=== PATIENT | female | born 1985 | race Caucasian/White ===

== ENCOUNTER 2016-06-23 17:14 | Emergency (ER) | payer OTHER ==
[~2016-06-23] VITALS: Ht 170.2 cm; Wt 60.9 kg
[~2016-06-23 17:14] MED LIST: AMOX250C PO; AMOX500C PO; HYDR-79 PO; HYDR-971 PO
--- NOTE | 2016-06-23 17:50 | ED.ADGEN ---
Past History Past Medical History: Asthma, Bronchitis, Diabetes, Other Past Surgical History: Smoking: Cigarettes Alcohol Use: Rarely Drug Use: None Adult General Chief Complaint Chief Complaint "I have asthma but I still smoke about a pack and half a day... But I am thinking about quitting... I develop earache and sore throat and coughing a lot.... I been sick the last 4-5 days".... HPI HPI Patient is a 31 year old female who presents with above hx and complaints of of upper respiratory infection, cough, pharyngitis, otitis, and fever. Patient does not get flu shots and not had Pneumovax. No recent travel. No specific ill contacts. Cough has been nonproductive. Ear pain started after attempting to clean ears . The patient normally follows with out pt. clinics for her asthma exacerbations. Pt. does not know her best peak flow. Review of Systems Review of Systems Constitutional: Subjective history of fever or chills [] Eyes: Denies change in visual acuity, redness, or eye pain [] HENT: History of nasal congestion, ear pain and sore throat [] Respiratory: Complains of a nonproductive cough and wheezing Cardiovascular: No additional information not addressed in HPI [] GI: Denies abdominal pain, nausea, vomiting, bloody stools or diarrhea [] : Denies dysuria or hematuria [] Musculoskeletal: Denies back pain or joint pain [] Integument: Denies rash or skin lesions [] Neurologic: Denies headache, focal weakness or sensory changes [] Endocrine: Denies polyuria or polydipsia [] Family History Family History Noncontributory Current Medications Current Medications Current Medications Medications (Trade) Dose Ordered Sig/Hossein Start Time Stop Time Status Last Admin Dose Admin Albuterol Sulfate (Ventolin Hfa) 2 puff 1X ONCE 06/23/16 18:15 06/23/16 18:16 DC 06/23/16 18:08 2 PUFF Azithromycin (Zithromax) 500 mg 1X ONCE 06/23/16 18:15 06/23/16 18:16 DC 06/23/16 18:15 500 MG Neomycin/ Polymyxin/ Hydrocortisone (Cortisporin Otic) 2 drop 1X ONCE 06/23/16 18:30 06/23/16 18:31 DC 06/23/16 18:30 2 DROP Prednisone (Prednisone) 60 mg 1X ONCE 06/23/16 18:15 06/23/16 18:16 DC 06/23/16 18:15 60 MG Allergies Allergies Allergies Coded Allergies Type Severity Reaction Last Updated Verified No Known Drug Allergies 02/18/16 No Physical Exam Physical Exam Constitutional: Mild distress, non-toxic appearance. [] HENT: Normocephalic, atraumatic, bilateral external ears normal, oropharynx moist, postnasal drainage with erythema, no oral exudates, nose clear rhinorrhea. Excoriation of the ear canals Eyes: PERRLA, EOMI, conjunctiva normal, no discharge. [] Neck: Normal range of motion, no tenderness, supple, no stridor. [] Cardiovascular:Heart rate regular rhythm, no murmur [] Lungs & Thorax: Bilateral breath sounds equal apexes with scattered wheezing on auscultation . Nonproductive cough. Abdomen: Bowel sounds normal, soft, no tenderness, no masses, no pulsatile masses. [] Old surgical scar. Skin: Warm, dry, no erythema, no rash. [] Tattoos. Back: No tenderness, no CVA tenderness. [] Extremities: No tenderness, no cyanosis, no clubbing, ROM intact, no edema. No cording. Neurologic: Alert and oriented X 3, normal motor function, normal sensory function, no focal deficits noted. [] Psychologic: Affect anxious, judgement normal, mood normal. [] Current Patient Data Vital Signs Vital Signs Date Time Temp Pulse Resp B/P Pulse Ox O2 Delivery O2 Flow Rate FiO2 06/23/16 18:25 98.9 81 20 160/98 99 Room Air EKG EKG [] Radiology/Procedures Radiology/Procedures [] Course & Med Decision Making Course & Med Decision Making Pertinent Labs and Imaging studies reviewed. (See chart for details). Stop smoking. Take his Zithromax 250 a day for 5 days. Take prednisone 50 mg a day for 5 days. Use Benadryl 25-50 mg 4 times a day for drainage and cough. Consider getting flu vaccination. Consider getting Pneumovax. Use Cortisporin ear drops to both ears 4 times a day. Follow-up primary care. Return if any concerns. Take [id number] Tylenol and ibuprofen for pain or fever [] Final Impression Final Impression 1. Bronchitis 2. Asthma 3. Tobacco Abuse[] 4. External otitis and excoriations 5. Upper respiratory infection Problems: Dragon Disclaimer Dragon Disclaimer This electronic medical record was generated, in whole or in part, using a voice recognition dictation system. SERGEY LUCERO MD Jun 23, 2016 17:50
[2016-06-23] MEDS ORDERED: PRED50TA PO (18:01)
[2016-06-23] MEDS ORDERED: AZIT250T PO (18:01)
[2016-06-23] MEDS ORDERED: AZITHROMYCIN 250 MG TABLET. PO ONE (18:15)
[2016-06-23] MEDS ORDERED: PREDNISONE 20 MG TABLET PO ONE (18:15)
[2016-06-23] MEDS ORDERED: ALBUTEROL SULFATE 8GM INHALER. INH ONE (18:15)
[2016-06-23 18:25] VITALS: BP 160/98
[2016-06-23] MEDS ORDERED: NEOMYCIN/POLYMYXIN/HC OTIC SUSPENSION 10ML BOTTLE. AU ONE (18:30)
== END 2016-06-23 18:30 | disposition home or self-care (01) ==
LOC: ER 17:14
DX: J06.9 Acute upper respiratory infection, unspecified (principal); J45.909 Unspecified asthma, uncomplicated; H66.93 Otitis media, unspecified, bilateral; E11.9 Type 2 diabetes mellitus without complications; F17.210 Nicotine dependence, cigarettes, uncomplicated; S00.412A Abrasion of left ear, initial encounter; S00.411A Abrasion of right ear, initial encounter; X58.XXXA Exposure to other specified factors, initial encounter; Y93.89 Activity, other specified; Y99.8 Other external cause status; Y92.89 Other specified places as the place of occurrence of the external cause
CPT/HCPCS: 94640; 99284; J0456; J7512; J7613; 94664

== ENCOUNTER 2016-07-11 16:26 | Emergency (ER) | payer OTHER ==
[2016-07-11 16:26] VITALS: BP 151/102
[~2016-07-11 16:26] MED LIST changes: +AZIT250T PO; +PRED50TA PO
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
== END 2016-07-11 17:06 | disposition left against medical advice (07) ==
LOC: ER 16:26
DX: K04.7 Periapical abscess without sinus (principal); R06.00 Dyspnea, unspecified; J45.909 Unspecified asthma, uncomplicated; F17.210 Nicotine dependence, cigarettes, uncomplicated
CPT/HCPCS: 99281

== ENCOUNTER 2016-08-30 14:22 | Emergency (ER) | payer OTHER ==
[~2016-08-30] VITALS: Ht 170.2 cm; Wt 60.9 kg
[~2016-08-30 14:22] MED LIST changes: +AMOX-260 PO; -AMOX250C PO
[2016-08-30] MEDS ORDERED: HYDR-971 PO (15:04)
--- NOTE | 2016-08-30 15:04 | PHYS DOC ---
Past History Past Medical History: No Pertinent History Past Surgical History: , Other Smoking: Cigarettes Alcohol Use: None Drug Use: None Adult General Chief Complaint Chief Complaint: DENTAL PROBLEM HPI HPI Patient is a 31-year-old female who presents ambulatory to the emergency department complaining of mouth pain. Patient states that 2 days ago she had 4 molars pulled by the dentist. She is continuing to have a lot of pain. She saw her doctor yesterday who put her on amoxicillin and Tylenol with Codeine. She is taking those as directed but still having a lot of pain. Also is taking ibuprofen 800 mg every 6-8 hours. Patient denies fever. She states that her face is swollen. Review of Systems Review of Systems Constitutional: Denies fever or chills [] GI: Denies vomiting Allergies Allergies Allergies Coded Allergies Type Severity Reaction Last Updated Verified tramadol Allergy Unknown 07/11/16 Yes Physical Exam Physical Exam Constitutional: Well developed, well nourished, no acute distress, non-toxic appearance. [] HENT: Normocephalic, atraumatic, bilateral external ears normal, does appear mildly swollen, no redness, no ecchymosis. Patient is able to open her mouth for exam. She does appear to have recent extractions of mandibular molars bilaterally. There is some redness and swelling diffusely of gum inflammation but no purulent drainage and no localized worsened swelling. No swelling of the tongue or under the tongue. She is handling her secretions well with no difficulty swallowing. Eyes:conjunctiva normal, no discharge. [] Neck: Normal range of motion, no tenderness, supple, no stridor. [] Skin: Warm, dry, no erythema, no rash. [] Extremities: No tenderness, no cyanosis, no clubbing, ROM intact, no edema. [] Neurologic: Alert and oriented X 3, normal motor function, normal sensory function, no focal deficits noted. [] Current Patient Data Vital Signs Vital Signs Date Time Temp Pulse Resp B/P (MAP) Pulse Ox O2 Delivery O2 Flow Rate FiO2 08/30/16 14:38 97.8 110 20 96 Room Air EKG EKG [] Radiology/Procedures Radiology/Procedures [] Course & Med Decision Making Course & Med Decision Making Pertinent Labs and Imaging studies reviewed. (See chart for details) 31-year-old female had for mandibular molars extracted and is having postoperative pain. I don't believe she has anything else contributing to the pain, no evidence of localized infection or "dry socket", she is just continuing to have some post extraction pain. I prescribed hydrocodone and she is to continue her amoxicillin. [] Karina Disclaimer Karina Disclaimer This chart was dictated in whole or in part using Voice Recognition software in a busy, high-work load, and often noisy Emergency Department environment. It may contain unintended and wholly unrecognized errors or omissions. Departure Departure: Impression: Primary Impression: S/P tooth extraction Additional Impression: Pain, dental Disposition: HOME, SELF-CARE Condition: STABLE Referrals: LALA CARIAS DO (PCP) Additional Instructions: Continue to take amoxicillin as prescribed. Continue to take ibuprofen 800 mg every 6-8 hours for pain. Apply ice 15-20 minutes out of every 1-2 hours to the area to decrease swelling. Stop taking Tylenol with Codeine, we will switch you to hydrocodone, which is a stronger pain reliever. Hydrocodone is an opiate. Do not take while driving. It can cause constipation and sedation. It will be addictive if you take it for very long. Only take it for 1-2 days as your pain should start improving quickly. Scripts Hydrocodone Bit/Acetaminophen (NORCO 5-325 TABLET) 1 Each Tablet 1-2 TAB PO Q4-6HRS for pain after dental work, #12 TAB Prov: JENA PEREZ MD 08/30/16 Problem Qualifiers JENA PEREZ MD August 30, 2016 15:04
[2016-08-30 15:11] VITALS: BP 142/88
== END 2016-08-30 15:09 | disposition home or self-care (01) ==
LOC: ER 14:22
DX: G89.18 Other acute postprocedural pain (principal); K08.89 Other specified disorders of teeth and supporting structures; F17.210 Nicotine dependence, cigarettes, uncomplicated; Z88.8 Allergy status to other drugs, medicaments and biological substances; Z98.890 Other specified postprocedural states
CPT/HCPCS: 99283

== ENCOUNTER 2016-12-22 17:57 | Emergency (ER) | payer OTHER ==
[~2016-12-22] VITALS: Ht 170.2 cm; Wt 62.1 kg
[2016-12-22 18:10] VITALS: BP 184/124
--- NOTE | 2016-12-22 18:31 | ED.ADGEN ---
Past History Past Medical History: No Pertinent History Past Surgical History: No Surgical History Smoking: Cigarettes Alcohol Use: Occasionally Drug Use: None Adult General Chief Complaint Chief Complaint Right index finger pain after falling up stairs while carrying objects [facility] Patient is a [31] year old [female] who presents with pain in PIP after falling up stairs while carrying things in her hands Review of Systems Review of Systems Constitutional: Denies fever or chills [] Eyes: Denies change in visual acuity, redness, or eye pain [] HENT: Denies nasal congestion or sore throat [] Respiratory: Denies cough or shortness of breath [] Cardiovascular: No additional information not addressed in HPI [] GI: Denies abdominal pain, nausea, vomiting, bloody stools or diarrhea [] : Denies dysuria or hematuria [] Musculoskeletal: pain over PIP of 2nd digit on right hand Integument: Denies rash or skin lesions [] Neurologic: Denies headache, focal weakness or sensory changes [] Endocrine: Denies polyuria or polydipsia [] Allergies Allergies Allergies Coded Allergies Type Severity Reaction Last Updated Verified tramadol Allergy Unknown 07/11/16 Yes Physical Exam Physical Exam Constitutional: Well developed, well nourished, no acute distress, non-toxic appearance. [] HENT: Normocephalic, atraumatic, bilateral external ears normal, oropharynx moist, no oral exudates, nose normal. [] Eyes: PERRLA, EOMI, conjunctiva normal, no discharge. [] Neck: Normal range of motion, no tenderness, supple, no stridor. [] Cardiovascular:Heart rate regular rhythm, no murmur [] Lungs & Thorax: Bilateral breath sounds clear to auscultation [] Skin: Warm, dry, no erythema, no rash. [] Extremities tender over PIP. minimal swelling, no ecchymosis. full flexion and extension actively with no pain Psychologic: Affect normal, judgement normal, mood normal. [] Current Patient Data Vital Signs Vital Signs Date Time Temp Pulse Resp B/P (MAP) Pulse Ox O2 Delivery O2 Flow Rate FiO2 12/22/16 18:10 97.7 114 20 100 Room Air EKG EKG [] Radiology/Procedures Radiology/Procedures [] Course & Med Decision Making Course & Med Decision Making pt with minimal swelling. full ROM without pain. she is requesting narcotic pain meds for minimal findings. I encouraged her to use tylenol and ibuprofen and ice. I discouraged splinting at this point. no tendon function deficit noted. Final Impression Final Impression finger injury[] Problems: Dragon Disclaimer Dragon Disclaimer This electronic medical record was generated, in whole or in part, using a voice recognition dictation system. Departure Time of Disposition: 18:29 Disposition: 01 HOME, SELF-CARE Diagnosis: finger injury Condition: GOOD Patient Instructions: Hand Contusion Additional Instructions: ice finger for 2-3 days. tylenol and ibuprofen for pain. rest your finger. see your doctor in 2 weeks if still having pain. return if any concerns LUCY MONSALVE MD Dec 22, 2016 18:31
== END 2016-12-22 18:33 | disposition home or self-care (01) ==
LOC: ER 17:57
DX: S69.91XA Unspecified injury of right wrist, hand and finger(s), initial encounter (principal); F17.210 Nicotine dependence, cigarettes, uncomplicated; Z88.6 Allergy status to analgesic agent; W10.9XXA Fall (on) (from) unspecified stairs and steps, initial encounter; Y93.89 Activity, other specified; Y99.8 Other external cause status; Y92.89 Other specified places as the place of occurrence of the external cause
CPT/HCPCS: 99281

== ENCOUNTER 2017-01-07 18:21 | Emergency (ER) | payer OTHER ==
[2017-01-07 18:21] VITALS: BP 121/76
[2017-01-07] MEDS ORDERED: SULF1TAB24 PO (18:38)
[2017-01-07] MEDS ORDERED: IBUP800T19 PO (18:38)
--- NOTE | 2017-01-07 18:39 | PHYS DOC ---
Past History Past Medical History: No Pertinent History Past Surgical History: No Surgical History Smoking: Cigarettes Alcohol Use: Occasionally Drug Use: None Adult General Chief Complaint Chief Complaint: FACE PAIN HPI HPI Patient is a 31 year old F who presents with abscess to the left denominational. Patient was seen at [facility] this morning for an abscess to left denominational which was I&D and patient was prescribed Keflex and for Lortabs. Patient presents to the emergency room today for increased pain and states the for Lortabs which she took has not controlled her pain. Patient states she is here for pain control. Patient states she's having no vision changes or any worsening symptoms. Patient denies any fevers. Patient denies any chest pain shortness of breath. Patient denies any nausea/vomiting/diarrhea. Patient denies any extension of the abscess. Patient has no other complaints. Review of Systems Review of Systems GEN: Denies fevers, chills, sweats HEENT: Denies blurred vision, sore throat CV: Denies chest pain RESP: Denies shortness of air, cough GI: Denies n/v/d NEURO: Denies confusion, dizziness MSK: Denies weakness, joint pain/swelling SKIN: Abscess left denominational Allergies Allergies Allergies Coded Allergies Type Severity Reaction Last Updated Verified tramadol Allergy Unknown 07/11/16 Yes Physical Exam Physical Exam GEN.: No apparent distress. Alert and oriented. HEENT: Head is normocephalic, atraumatic, abscess to the left denominational that is draining from an incision and drainage done earlier today, 2 cm of induration with no fluctuance noted, extraocular ocular muscles intact bilaterally, pupils equal and reactive bilaterally NECK: Supple. LUNGS: CTAB. HEART: RRR, S1, S2 present. Peripheral pulses intact ABDOMEN: Soft, nontender. Positive bowel sounds. EXTREMITIES: Without any cyanosis. NEUROLOGIC: Normal speech, normal tone, cranial nerves II through XII are grossly intact without any focal neurological deficits PSYCHIATRIC: Normal affect, normal mood. SKIN: No ulcerations EKG EKG [] Radiology/Procedures Radiology/Procedures [] Course & Med Decision Making Course & Med Decision Making Pertinent Labs and Imaging studies reviewed. (See chart for details) ED course: Patient was seen and examined emergency room had a long discussion with the patient in regards to pain management and treatment of abscesses. Patient states she has a history of MRSA therefore recommended adding Bactrim to the Keflex that was started prescribed since Bactrim has better coverage for MRSA. Patient was agreeable to adding the Bactrim. Discussed pain management and since she is already received for Lortabs recommended utilizing Motrin. Discussed using 800 mg Motrin 3 times a day as needed for pain and if she wanted something stronger she can follow up with a family doctor who can closely monitor and prescribe her narcotic pain medication. I explained to her that I do not prescribe narcotic pain medication for simple small abscess. Patient was comfortable with this plan and agreed to taking the Motrin and Bactrim. I did offer the patient the Patient the possibility of obtaining a CT scan to see if there is any extension of the abscess however the patient declined the CT scan at this time. Patient is stable for discharge. MDM: After reviewing the chart, CC/HPI/PMH, physical exam, I do not believe the patient has a severe bacterial infection warranting further workup and/or admission at this time. I do not believe the patient has orbital cellulitis or extensive facial cellulites at this time. I believe the patient has a simple abscess that has already been drained at another ER earlier today and I believe the patient can be treated with oral antibiotics and close follow-up with PCP. Had a long discussion with the patient regards to pain management and have agreed upon using Motrin 800 mg 3 times a day. Additional verbal discharge instructions were provided to the patient and that if symptoms get worse or any new symptoms arise that are worrisome to the patient she is to return to the emergency room immediately [] Dragon Disclaimer Dragon Disclaimer This chart was dictated in whole or in part using Voice Recognition software in a busy, high-work load, and often noisy Emergency Department environment. It may contain unintended and wholly unrecognized errors or omissions. Departure Departure: Impression: Primary Impression: Skin abscess Disposition: HOME, SELF-CARE Condition: IMPROVED Referrals: PCP,NO (PCP) Patient Instructions: Abscess Additional Instructions: Please follow-up with your family physician in the next one to 2 days and return if symptoms increase Scripts Ibuprofen (IBUPROFEN) 800 Mg Tablet 1 TAB PO TID for 10 Days, #30 TAB 1 Refill Prov: MARION KWOK DO 01/07/17 Sulfamethoxazole/Trimethoprim (BACTRIM DS TABLET) 1 Each Tablet 1 TAB PO BID for 10 Days, #20 TAB Prov: MARION KWOK DO 01/07/17 MARION KWOK DO Jan 07, 2017 18:39
== END 2017-01-07 18:53 | disposition home or self-care (01) ==
LOC: ER 18:21
DX: L02.01 Cutaneous abscess of face (principal); F17.210 Nicotine dependence, cigarettes, uncomplicated; Z88.6 Allergy status to analgesic agent
CPT/HCPCS: 99283

== ENCOUNTER 2017-01-29 19:34 | Emergency (ER) | payer OTHER ==
[~2017-01-29] VITALS: Ht 170.2 cm; Wt 60.9 kg
[~2017-01-29 19:34] MED LIST changes: +IBUP800T19 PO; +SULF1TAB24 PO
--- NOTE | 2017-01-29 19:39 | ED.ADGEN ---
Past History Past Medical History: Asthma, Bipolar, Diabetes, MRSA, Seizure, Other Past Surgical History: Smoking: Cigarettes Alcohol Use: Occasionally Drug Use: None Adult General Chief Complaint Chief Complaint " I decided to quit drinking last night.. I guess I had a seizure... I woke up with paramedics over me..." HPI HPI Patient is a 31 year old female who presents with above hx and complaints of seizure and mental status change. Patient has had previous withdrawal seizures before when she stopped drinking alcohol. Patient denies any drug use. Patient denies any other injuries. Patient has obviously bitten her tongue. Pt is very tremulous. Hyper reflexive. Pt. still a little postictal. No history of primary care. Review of Systems Review of Systems Constitutional: Currently complaining of chills [] Eyes: Denies change in visual acuity, redness, or eye pain [] HENT: Denies nasal congestion or sore throat []complains of sore tongue where she bit it Respiratory: Denies cough or shortness of breath [] Cardiovascular: No additional information not addressed in HPI [] GI: Denies abdominal pain, nausea, vomiting, bloody stools or diarrhea [] : Denies dysuria or hematuria [] Musculoskeletal: Denies back pain or joint pain [] Integument: Denies rash or skin lesions [] Neurologic: Denies headache, focal weakness or sensory changes []history of withdrawal seizure Endocrine: Denies polyuria or polydipsia [] Family History Family History Noncontributory Current Medications Current Medications Current Medications Medications (Trade) Dose Ordered Sig/Hossein Start Time Stop Time Status Last Admin Dose Admin Clonidine HCl (Catapres) 0.1 mg 1X ONCE 01/29/17 20:15 01/29/17 20:16 DC 01/29/17 20:15 0.1 MG Famotidine (Pepcid) 20 mg 1X ONCE 01/29/17 20:15 01/29/17 20:16 DC 01/29/17 20:15 20 MG Lorazepam (Ativan) 2 mg 1X ONCE 01/29/17 23:30 01/29/17 23:31 DC 01/29/17 23:37 2 MG Magnesium Hydroxide (Milk Of Magnesia) 2,400 mg 1X ONCE 01/29/17 23:30 01/29/17 23:31 DC 01/29/17 23:35 2,400 MG Multivitamins/ Minerals 10 ml/ Folic Acid 1 mg/ Thiamine HCl 100 mg/Sodium Chloride 1,011.2 ml @ 1,000 mls/ hr Q1H 01/29/17 20:30 01/29/17 20:59 DC 01/29/17 20:58 1,000 MLS/HR Ondansetron HCl (Zofran) 8 mg 1X ONCE 01/29/17 20:15 01/29/17 20:16 DC 01/29/17 00:19 8 MG Allergies Allergies Allergies Coded Allergies Type Severity Reaction Last Updated Verified tramadol Allergy Unknown 07/11/16 Yes Physical Exam Physical Exam Constitutional: in acute distress, non-toxic appearance. [] HENT: Normocephalic, atraumatic, bilateral external ears normal, oropharynx moist, no oral exudates, nose normal. Bite willson on tongue Eyes: PERRLA, EOMI, conjunctiva normal, no discharge. [] Neck: Normal range of motion, no tenderness, supple, no stridor. [] Cardiovascular: Tachycardia rate regular rhythm, no murmur [] Lungs & Thorax: Bilateral breath sounds equal at apexes with scattered rhonchi and wheezes auscultation [] Abdomen: Bowel sounds normal, soft, no tenderness, no masses, no pulsatile masses. [] Skin: Warm, dry, no erythema, no rash. [] Back: No tenderness, no CVA tenderness. [] Extremities: No tenderness, no cyanosis, no clubbing, ROM intact, no edema. [] Neurologic: Alert and oriented X 3, no gross motor function deficits, gross sensory function intact, no gross focal deficits noted. [] DTR + 2 patella and brachial. Tremor. Psychologic: Affect anxious, judgement normal, mood depressed Current Patient Data Vital Signs Vital Signs Date Time Temp Pulse Resp B/P (MAP) Pulse Ox O2 Delivery O2 Flow Rate FiO2 01/29/17 22:27 83 20 101/61 (74) 95 Room Air 01/29/17 19:37 98.6 Lab Results Laboratory Tests Test 01/29/17 19:46 01/29/17 19:55 01/29/17 20:30 01/29/17 20:45 Urine Opiates Screen Neg (NEG) Urine Methadone Screen Neg (NEG) Urine Barbiturates Neg (NEG) Urine Phencyclidine Screen Neg (NEG) Urine Amphetamine/Methamphetamine Neg (NEG) Urine Benzodiazepines Screen Neg (NEG) Urine Cocaine Screen Neg (NEG) Urine Cannabinoids Screen Neg (NEG) Urine Ethyl Alcohol Neg (NEG) White Blood Count 3.3 x10^3/uL (4.0-11.0) L Red Blood Count 3.35 x10^6/uL (3.50-5.40) L Hemoglobin 12.6 g/dL (12.0-15.5) Hematocrit 37.0 % (36.0-47.0) Mean Corpuscular Volume 110 fL (79-100) H Mean Corpuscular Hemoglobin 38 pg (25-35) H Mean Corpuscular Hemoglobin Concent 34 g/dL (31-37) Red Cell Distribution Width 15.0 % (11.5-14.5) H Platelet Count 50 x10^3/uL (140-400) L Neutrophils (%) (Auto) 73 % (31-73) Lymphocytes (%) (Auto) 18 % (24-48) L Monocytes (%) (Auto) 8 % (0-9) Eosinophils (%) (Auto) 0 % (0-3) Basophils (%) (Auto) 1 % (0-3) Neutrophils # (Auto) 2.4 x10^3uL (1.8-7.7) Lymphocytes # (Auto) 0.6 x10^3/uL (1.0-4.8) L Monocytes # (Auto) 0.3 x10^3/uL (0.0-1.1) Eosinophils # (Auto) 0.0 x10^3/uL (0.0-0.7) Basophils # (Auto) 0.0 x10^3/uL (0.0-0.2) Platelet Estimate Decreased (ADEQUATE) Microcytosis Mod Ovalocytes Occ Schistocytes Occ Prothrombin Time 11.1 SEC (9.4-11.4) Prothrombin Time INR 1.1 (0.9-1.1) PTT 23 SEC (23-33) Sodium Level 136 mmol/L (136-145) Potassium Level 3.6 mmol/L (3.5-5.1) Chloride Level 97 mmol/L (98-107) L Carbon Dioxide Level 18 mmol/L (21-32) L Anion Gap 21 (6-14) H Blood Urea Nitrogen 8 mg/dL (7-20) Creatinine 1.2 mg/dL (0.6-1.0) H Estimated GFR (Cockcroft-Gault) 52.7 Glucose Level 189 mg/dL (70-99) H Calcium Level 8.8 mg/dL (8.5-10.1) Magnesium Level 1.0 mg/dL (1.8-2.4) L Total Bilirubin 1.0 mg/dL (0.2-1.0) Direct Bilirubin 0.4 mg/dL (0.0-0.2) H Aspartate Amino Transferase (AST) 135 U/L (15-37) H Alanine Aminotransferase (ALT) 58 U/L (14-59) Alkaline Phosphatase 109 U/L (46-116) Total Protein 8.0 g/dL (6.4-8.2) Albumin 4.0 g/dL (3.4-5.0) Ethyl Alcohol Level < 10 mg/dL (0-10) Urine Collection Type Unknown Urine Color Grace Urine Clarity Clear Urine pH 6.0 Urine Specific [employer] >=1.030 Urine Protein >100 mg/dl (NEG-TRACE) Urine Glucose (UA) Neg mg/dL (NEG) Urine Ketones (Stick) Neg mg/dL (NEG) Urine Blood Mod (NEG) Urine Nitrite Neg (NEG) Urine Bilirubin Neg (NEG) Urine Urobilinogen Dipstick 1 mg/dL (0.2 mg/dL) Urine Leukocyte Esterase Neg (NEG) Urine RBC Occ /HPF (0-2) Urine WBC Occ /HPF (0-4) Urine Squamous Epithelial Cells Mod /LPF Urine Bacteria 0 /HPF (0-FEW) Urine Mucus Mod /LPF POC Urine HCG, Qualitative hcg negative (Negative) EKG EKG My interpretation EKG shows sinus tachycardia 103 bpm. No acute morphology.[] Radiology/Procedures Radiology/Procedures My interpretation of chest x-ray shows no acute cardiopulmonary findings. My interpretation of CT shows no shift, mass, edema, bleed, or fracture. Does appear to have generalized cerebellar and cerebral atrophy [] Course & Med Decision Making Course & Med Decision Making Pertinent Labs and Imaging studies reviewed. (See chart for details). Begged patient to reconsider her decision to be discharged home. Patient take a multivitamin. Patient take Ativan 1 mg up to 4 times a day. Must follow-up primary care. Return if she elects to be admitted. Push fruit juices. Follow-up all labs and x-rays with primary care. Return if any concerns. [] Final Impression Final Impression 1. Hx ETOH abuse 2. Seizure[] suspect alcohol withdrawal 3. Hypokalemia 4. Diabetes 5. Elevated creatinine 6. Leukopenia 7. Thrombocytopenia 8. Elevated AST 9. Macrocytic and hyperchromic indices Problems: Dragon Disclaimer Dragon Disclaimer This electronic medical record was generated, in whole or in part, using a voice recognition dictation system. SERGEY LUCERO MD Jan 29, 2017 19:39
[2017-01-29 20:14] LABS: BASO % 1 % (0-3); EOS % 0 % (0-3); HEMOGLOBIN 12.6 g/dL (12.0-15.5); LYMPH # 0.6 x10^3/uL (1.0-4.8); LYMPH % 18 % (24-48); MEAN CORPUSCULAR HEMOGLOBIN 38 pg (25-35); MEAN CORPUSCULAR HGB CONC 34 g/dL (31-37); MEAN CORPUSCULAR VOLUME 110 fL (79-100); MONO # 0.3 x10^3/uL (0.0-1.1); MONO % 8 % (0-9); NEUT # 2.4 x10^3uL (1.8-7.7); NEUT % 73 % (31-73); PLATELET COUNT 50 x10^3/uL (140-400); RED BLOOD COUNT 3.35 x10^6/uL (3.50-5.40); WHITE BLOOD COUNT 3.3 x10^3/uL (4.0-11.0)
[2017-01-29] MEDS ORDERED: ONDANSETRON PF 4 MG/2 ML VIAL. IV ONE (20:15)
[2017-01-29] MEDS ORDERED: LORazepam 2 MG/ML VIAL IV ONE (20:15)
[2017-01-29] MEDS ORDERED: cloNIDine HCL 0.1 MG TABLET PO ONE (20:15)
[2017-01-29] MEDS ORDERED: FAMOTIDINE 20 MG TABLET PO ONE (20:15)
[2017-01-29] MEDS ORDERED: MVI, ADULT NO.4 WITH VIT K 10 ML, FOLIC ACID SYRINGE for ER 1 MG, THIAMINE 100 MG in IV... IV SCH ×4 (20:30)
[2017-01-29 20:32] LABS: CALCIUM 8.8 mg/dL (8.5-10.1); CREATININE 1.2 mg/dL (0.6-1.0); DIRECT BILIRUBIN 0.4 mg/dL (0.0-0.2); GFR 52.7; POTASSIUM 3.6 mmol/L (3.5-5.1)
[2017-01-29 20:59] LABS: BARBITURATES NEG (NEG); BENZODIAZEPINES NEG (NEG); CANNABINOIDS NEG (NEG); COCAINE NEG (NEG); METHADONE NEG (NEG); OPIATES NEG (NEG); PHENCYCLIDINE NEG (NEG)
[2017-01-29 21:02] LABS: BACTERIA,URINE 0 /HPF (0-FEW); BILIRUBIN,URINE NEG (NEG); CLARITY,URINE CLEAR; COLOR,URINE AMBER; GLUCOSE,URINE NEG (NEG); NITRITE,URINE NEG (NEG); RBC,URINE OCC /HPF (0-2); SQUAMOUS EPITHELIAL CELL,UR MOD /LPF; UROBILINOGEN,URINE 1 mg/dL (0.2 mg/dL); WBC,URINE OCC /HPF (0-4)
[2017-01-29 21:05] LABS: AMPHETAMINE/METHAMPHETAMINE NEG (NEG)
--- NOTE | 2017-01-29 21:13 | RAD ---
CT head without intravenous contrast History: Seizure today. Comparison: None. Technique: Axial images are obtained of the head from the skull base through the vertex without IV contrast. Exposure: One or more of the following individualized dose reduction techniques were utilized for this examination: 1. Automated exposure control 2. Adjustment of the mA and/or kV according to patient size 3. Use of iterative reconstruction technique Findings: Mild diffuse cerebral cerebellar volume loss is seen, greater than expected for age. Ventricles are otherwise appropriate in size and location. No obvious intracranial mass, mass-effect, midline shift, hemorrhage or obvious acute infarction is identified. Basilar cisterns are patent. Bone windows demonstrate no acute calvarial abnormality. The visualized paranasal sinuses appear clear. Impression: 1. No acute intracranial process. 2. Mild diffuse cerebral and cerebellar volume loss, greater than expected for patient age. Electronically signed by: Lei Murcia MD (01/29/2017 9:10 PM) [facility]
[2017-01-29 22:19] LABS: MICROCYTOSIS MOD; PLT ESTIMATE DECREASED (ADEQUATE)
[2017-01-29 22:20] LABS: OVALOCYTES OCC; SCHISTOCYTES OCC
[2017-01-29 22:27] VITALS: BP 101/61
[2017-01-29] MEDS ORDERED: LORA-434 PO (23:24)
[2017-01-29] MEDS ORDERED: LORazepam 1 MG TABLET PO ONE (23:30)
[2017-01-29] MEDS ORDERED: MAGNESIUM HYDROXIDE 2,400 MG/30 ML ORAL.SUSP. PO ONE (23:30)
--- NOTE | 2017-01-30 03:30 | EKG ---
[address] [address] Test Date: 2017-01-29 Test Time: 20:04:11 Pat Name: JERAMY OLIVEIRA Department: Room: Gender: F Cardiac Tech: FAUSTO : 1985 Requested By: SERGEY LUCERO Order Number: [id number] Reading MD: Vasu Concepcion Measurements Intervals [place] Rate: 103 P: 62 VA: 154 QRS: 69 QRSD: 80 T: 48 QT: 334 QTc: 439 Interpretive Statements SINUS TACHYCARDIA Electronically Signed On 02-09-2017 10:15:20 CDT by Vasu Concepcion
--- NOTE | 2017-01-30 09:24 | RAD ---
PA and lateral chest radiographs 01/29/2017 Clinical history: Shortness of breath. PA and lateral digital radiographs of the chest were obtained. No previous studies are available for comparison. The cardiac and mediastinal silhouettes are within normal limits in size and configuration. No acute pulmonary infiltrate is seen. No pleural effusion or pneumothorax is noted. Posttraumatic deformity of the left lateral superior chest wall is noted. Old healed rib fractures are seen in this area. Very mild S-shaped curvature of the thoracolumbar spine is seen. No acute osseous abnormality is noted. Impression: No acute pulmonary infiltrate is seen.
== END 2017-01-29 23:41 | disposition home or self-care (01) ==
LOC: ER 19:34
DX: R56.9 Unspecified convulsions (principal); E87.6 Hypokalemia; E11.9 Type 2 diabetes mellitus without complications; D72.819 Decreased white blood cell count, unspecified; D69.6 Thrombocytopenia, unspecified; D50.9 Iron deficiency anemia, unspecified; D53.9 Nutritional anemia, unspecified; R94.5 Abnormal results of liver function studies; R79.89 Other specified abnormal findings of blood chemistry; F10.10 Alcohol abuse, uncomplicated; J45.909 Unspecified asthma, uncomplicated; F17.210 Nicotine dependence, cigarettes, uncomplicated; Z86.14 Personal history of Methicillin resistant Staphylococcus aureus infection; Z88.6 Allergy status to analgesic agent
CPT/HCPCS: 36415; 70450; 71020; 80048; 80076; 80307; 81001; 81025; 83735; 85025; 85610; 85730; 93005; 96365; 96375; 99285; G0480; J2060; J2405; G0479; J7030

== ENCOUNTER 2017-01-31 16:45 | Emergency (ER) | payer OTHER ==
[~2017-01-31] VITALS: Ht 170.2 cm; Wt 60.9 kg
[~2017-01-31 16:45] MED LIST changes: +LORA-434 PO
[2017-01-31 16:52] VITALS: BP 101/61
[2017-01-31] MEDS ORDERED: PHENYLEPHRINE 1% NASAL DROP 30ML BOTTLE. NS ONE (17:00)
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
== END 2017-01-31 16:55 | disposition left against medical advice (07) ==
LOC: ER 16:45
DX: R04.0 Epistaxis (principal); S09.92XA Unspecified injury of nose, initial encounter; E11.9 Type 2 diabetes mellitus without complications; J45.909 Unspecified asthma, uncomplicated; F31.9 Bipolar disorder, unspecified; F17.210 Nicotine dependence, cigarettes, uncomplicated; F10.10 Alcohol abuse, uncomplicated; Z86.14 Personal history of Methicillin resistant Staphylococcus aureus infection; W22.8XXA Striking against or struck by other objects, initial encounter; Y93.89 Activity, other specified; Y99.8 Other external cause status; Y92.89 Other specified places as the place of occurrence of the external cause
CPT/HCPCS: 96372; 99281; 99284-25

== ENCOUNTER 2017-05-18 17:39 | Inpatient (IN) | payer OTHER ==
[~2017-05-18] VITALS: Ht 170.2 cm; Wt 58.3 kg
[2017-05-18] MEDS ORDERED: IV NORMAL SALINE 1,000ML 1,000 ML IV ONE (18:30)
[2017-05-18 18:43] LABS: BASO # 0.1 x10^3/uL (0.0-0.2); BASO % 1 % (0-3); EOS % 0 % (0-3); HEMATOCRIT 21.8 % (36.0-47.0); LYMPH # 0.9 x10^3/uL (1.0-4.8); LYMPH % 9 % (24-48); MEAN CORPUSCULAR HEMOGLOBIN 36 pg (25-35); MEAN CORPUSCULAR HGB CONC 32 g/dL (31-37); MEAN CORPUSCULAR VOLUME 112 fL (79-100); MONO # 0.5 x10^3/uL (0.0-1.1); MONO % 5 % (0-9); NEUT # 8.2 x10^3uL (1.8-7.7); NEUT % 85 % (31-73); PLATELET COUNT 183 x10^3/uL (140-400); RED BLOOD COUNT 1.94 x10^6/uL (3.50-5.40); RED CELL DISTRIBUTION WIDTH 16.5 % (11.5-14.5); WHITE BLOOD COUNT 9.7 x10^3/uL (4.0-11.0)
[2017-05-18] MEDS ORDERED: ONDANSETRON PF 4 MG/2 ML VIAL. IV ONE (18:45)
[2017-05-18] MEDS ORDERED: MVI, ADULT NO.4 WITH VIT K 10 ML, FOLIC ACID SYRINGE for ER 1 MG, THIAMINE 100 MG in IV... IV ONE ×4 (18:45)
[2017-05-18 18:50] LABS: ACETAMIN < 2.0 mcg/mL (10-30); ETHANOL 198 mg/dL (0-10); SALIC < 0.2 mg/dL (2.8-20.0)
[2017-05-18 18:52] LABS: ALBUMIN 2.9 g/dL (3.4-5.0); ALBUMIN/GLOBULIN RATIO 0.5 (1.0-1.7); CALCIUM 8.9 mg/dL (8.5-10.1); CREATININE 1.1 mg/dL (0.6-1.0); GFR 57.9; MAGNESIUM 1.7 mg/dL (1.8-2.4); POTASSIUM 3.1 mmol/L (3.5-5.1); TOTAL PROTEIN 8.4 g/dL (6.4-8.2)
[2017-05-18 18:53] LABS: TOTAL BILIRUBIN 4.2 mg/dL (0.2-1.0)
[2017-05-18] MEDS ORDERED: POTASSIUM CHLORIDE 20MEQ 100 ML IV ONE (19:00)
[2017-05-18] MEDS ORDERED: MULTIVITAMIN with MINERAL TABLET. PO ONE (19:00)
[2017-05-18 19:11] LABS: BARBITURATES NEG (NEG); BENZODIAZEPINES NEG (NEG); CANNABINOIDS NEG (NEG); COCAINE NEG (NEG); METHADONE NEG (NEG); OPIATES NEG (NEG); PHENCYCLIDINE NEG (NEG)
[2017-05-18 19:12] LABS: AMPHETAMINE/METHAMPHETAMINE NEG (NEG)
[2017-05-18] MEDS ORDERED: POTASSIUM CHLORIDE 20 MEQ TABLET.ER. PO ONE (19:15)
[2017-05-18] MEDS ORDERED: CONTRAST GIVEN MC PRN (19:15)
[2017-05-18] MEDS ORDERED: MAGNESIUM OXIDE 400 MG TABLET PO ONE (19:15)
[2017-05-18 19:26] LABS: BILIRUBIN,URINE NEG (NEG); CLARITY,URINE HAZY; COLOR,URINE YELLOW; GLUCOSE,URINE >=1000 mg/dL (NEG)
[2017-05-18 19:27] LABS: BACTERIA,URINE 0 /HPF (0-FEW); NITRITE,URINE NEG (NEG); SQUAMOUS EPITHELIAL CELL,UR MANY /LPF; UROBILINOGEN,URINE 4 mg/dL (0.2 mg/dL)
[2017-05-18 19:28] LABS: YEAST,URINE PRESENT /HPF
[2017-05-18] MEDS ORDERED: IOHEXOL 300 MG/ML 75 ML VIAL. IV ONE (19:30)
[2017-05-18] MEDS ORDERED: IV DEXTROSE 5 %-0.45 % NACL 1,000 ML IV SCH (19:51)
[2017-05-18] MEDS ORDERED: INSULIN REGULAR 150 UNIT in 0.9 % SODIUM CHLORIDE 150ML 150 ML IV PRN (20:00)
--- NOTE | 2017-05-18 20:13 | RAD ---
CT abdomen and pelvis with contrast HISTORY: Abdominal pain, elevated bilirubin, weakness, anemia, pancreatitis. TECHNIQUE: Helical CT imaging of the abdomen and pelvis acquired with 75 mL Omnipaque 300 intravenous contrast. Abdomen findings: Small subpleural groundglass nodules left lower lobe posteriorly largest measuring 7 mm. Marked hypodensity of the liver likely fatty. Disc bulges lower lumbar spine with probable spinal canal stenosis at L5-S1. There may be hepatomegaly. Gallbladder, pancreas, adrenal glands, spleen and kidneys are unremarkable. No obstruction or inflammatory changes in GI tract. Appendix is not visualized may be obscured by surrounding bowel loops. No abdominal fluid or adenopathy. Pelvis findings: Ovaries, uterus, bladder, rectum and bones are unremarkable. No pelvic fluid or adenopathy. IMPRESSION: 1. No acute process. 2. Fatty liver. Probable mild hepatomegaly. 3. 2 subpleural left lower lobe groundglass pulmonary nodules largest measuring 7 mm. Per Fleischner guidelines follow-up CT imaging in 6-12 months is advised. Exposure: One or more of the following individualized dose reduction techniques were utilized for this examination: 1. Automated exposure control 2. Adjustment of the mA and/or kV according to patient size 3. Use of iterative reconstruction technique Electronically signed by: Sebastian Downs MD (05/18/2017 8:10 PM) [facility]
[2017-05-18] MEDS ORDERED: 0.9 % SODIUM CHLORIDE 150ML 150 ML ONE (20:42)
[2017-05-18] MEDS ORDERED: FLUCONAZOLE 100 MG TABLET. PO ONE (20:45)
[2017-05-18 21:04] LABS: FECAL OB PT NEGATIVE (NEG)
[2017-05-18] MEDS ORDERED: ONDANSETRON PF 4 MG/2 ML VIAL. IV PRN (21:30)
[2017-05-18] MEDS ORDERED: POTASSIUM CL 20MEQ IN 0.9%NACL 1,000 ML IV ONE (21:30)
[2017-05-18 21:53] VITALS: BP 105/63
[2017-05-18 22:33] LABS: ANISOCYTOSIS SLIGHT; PLT ESTIMATE ADEQUATE (ADEQUATE); POLYCHROMASIA PRESENT; TARGET CELLS FEW; TEAR DROP CELLS OCC
--- NOTE | 2017-05-18 22:53 | PHYS DOC ---
Past History Past Medical History: Asthma, Bipolar, Diabetes, MRSA, Seizure, Other Past Surgical History: , Other Smoking: Cigarettes Alcohol Use: Heavy Drug Use: None Adult General Chief Complaint Chief Complaint: ALCOHOL INTOXICATION HPI HPI Patient is a 32-year-old female presenting to the emergency department for evaluation of generalized weakness fatigue lateral leg numbness bilateral scleral icterus decreased by mouth intake. Patient is an alcoholic and drinks approximately a liter of vodka daily. She will not commit to how long she has been doing this but she does admit that she is an alcoholic. She denies any hematemesis bright red blood or black stools. No fevers chills vomiting diarrhea constipation dysuria hematuria. Review of Systems Review of Systems Constitutional: Denies fever or chills [] Eyes: Denies change in visual acuity, redness, or eye pain [] HENT: Denies nasal congestion or sore throat [] Respiratory: Denies cough or shortness of breath [] Cardiovascular: No additional information not addressed in HPI [] GI: Denies abdominal pain. + nausea. no vomiting, bloody stools or diarrhea [] : Denies dysuria or hematuria [] Musculoskeletal: Denies back pain or joint pain [] Integument: Denies rash or skin lesions [] Neurologic: Denies headache, focal weakness. + BL lower ext numbness All other systems were reviewed and found to be within normal limits, except as documented in this note. Current Medications Current Medications Current Medications Medications (Trade) Dose Ordered Sig/Hossein Start Time Stop Time Status Last Admin Dose Admin Dextrose/Sodium Chloride 1,000 ml @ 0 mls/hr Q0M 05/18/17 19:51 UNV Fluconazole (Diflucan) 150 mg 1X ONCE 05/18/17 20:45 05/18/17 20:46 DC 05/18/17 20:45 150 MG Info (Do NOT chart on this entry -- for MONITORING) 1 each PRN DAILY PRN 05/18/17 19:15 05/20/17 19:14 Insulin Human Regular 150 unit/ Sodium Chloride 151.5 ml @ 0 mls/hr CONT PRN PRN 05/18/17 20:00 Iohexol (Omnipaque 300 Mg/ml) 75 ml 1X ONCE 05/18/17 19:30 05/18/17 19:31 DC 05/18/17 19:37 75 ML Magnesium Oxide (Magnesium Oxide) 800 mg 1X ONCE 05/18/17 19:15 05/18/17 19:16 DC 05/18/17 19:14 800 MG Multivitamins/ Calcium (Thera-M Plus) 1 tab 1X ONCE 05/18/17 19:00 05/18/17 19:01 DC 05/18/17 19:57 1 TAB Multivitamins/ Minerals 10 ml/ Folic Acid 1 mg/ Thiamine HCl 100 mg/Sodium Chloride 1,011.1 ml @ 1,000 mls/ hr 1X ONCE 05/18/17 18:45 05/18/17 19:45 DC 05/18/17 19:57 1,000 MLS/HR Ondansetron HCl (Zofran) 4 mg 1X ONCE 05/18/17 18:45 05/18/17 18:46 DC 05/18/17 19:05 4 MG Potassium Chloride 100 ml @ 50 mls/hr 1X ONCE 05/18/17 19:00 05/18/17 20:59 DC 05/18/17 19:13 50 MLS/HR Potassium Chloride (Klor-Con) 40 meq 1X ONCE 05/18/17 19:15 05/18/17 19:16 DC 05/18/17 19:14 40 MEQ Sodium Chloride 150 ml @ As Directed STK-MED ONCE 05/18/17 20:42 05/18/17 20:43 DC Allergies Allergies Allergies Coded Allergies Type Severity Reaction Last Updated Verified tramadol Allergy Unknown 07/11/16 Yes Physical Exam Physical Exam Constitutional: Chronically ill-appearing female HENT: Normocephalic, atraumatic, bilateral external ears normal, oropharynx moist, no oral exudates, nose normal. [] Eyes: PERRLA, EOMI, positive scleral icterus, no discharge. [] Neck: Normal range of motion, no tenderness, supple, no stridor. [] Cardiovascular:Heart rate tachycardic with regular rhythm, no murmur [] Lungs & Thorax: Bilateral breath sounds clear to auscultation [] Abdomen: Bowel sounds normal, soft, positive epigastric tenderness, no rebound or guarding, no masses, no pulsatile masses. [] Skin: Warm, dry, no erythema, no rash. [] Back: No tenderness, no CVA tenderness. [] Extremities: No tenderness, no cyanosis, no clubbing, ROM intact, no edema. [] Neurologic: Alert and oriented X 3, patient with weakness in her bilateral legs when trying to lift her legs which she is able to lift partially against gravity. She states sensation is diminished to tinge on bilateral lower extremities below-knee. Current Patient Data Vital Signs Vital Signs Date Time Temp Pulse Resp B/P (MAP) Pulse Ox O2 Delivery O2 Flow Rate FiO2 05/18/17 17:39 97.8 122 18 98 Room Air Lab Results Laboratory Tests Test 05/18/17 18:10 05/18/17 18:34 05/18/17 20:00 05/18/17 22:02 White Blood Count 9.7 x10^3/uL (4.0-11.0) Red Blood Count 1.94 x10^6/uL (3.50-5.40) L Hemoglobin 7.0 g/dL (12.0-15.5) *L Hematocrit 21.8 % (36.0-47.0) L Mean Corpuscular Volume 112 fL (79-100) H Mean Corpuscular Hemoglobin 36 pg (25-35) H Mean Corpuscular Hemoglobin Concent 32 g/dL (31-37) Red Cell Distribution Width 16.5 % (11.5-14.5) H Platelet Count 183 x10^3/uL (140-400) # Neutrophils (%) (Auto) 85 % (31-73) H Lymphocytes (%) (Auto) 9 % (24-48) L Monocytes (%) (Auto) 5 % (0-9) Eosinophils (%) (Auto) 0 % (0-3) Basophils (%) (Auto) 1 % (0-3) Neutrophils # (Auto) 8.2 x10^3uL (1.8-7.7) H Lymphocytes # (Auto) 0.9 x10^3/uL (1.0-4.8) L Monocytes # (Auto) 0.5 x10^3/uL (0.0-1.1) Eosinophils # (Auto) 0.0 x10^3/uL (0.0-0.7) Basophils # (Auto) 0.1 x10^3/uL (0.0-0.2) Platelet Estimate Adequate (ADEQUATE) Polychromasia Present Anisocytosis Slight Macrocytosis Mod Target Cells Few Tear Drop Cells Occ Prothrombin Time 11.4 SEC (9.4-11.4) Prothrombin Time INR 1.1 (0.9-1.1) PTT 24 SEC (23-33) Sodium Level 136 mmol/L (136-145) Potassium Level 3.1 mmol/L (3.5-5.1) L Chloride Level 97 mmol/L (98-107) L Carbon Dioxide Level 16 mmol/L (21-32) L Anion Gap 23 (6-14) H Blood Urea Nitrogen 6 mg/dL (7-20) L Creatinine 1.1 mg/dL (0.6-1.0) H Estimated GFR (Cockcroft-Gault) 57.9 BUN/Creatinine Ratio 5 (6-20) L Glucose Level 388 mg/dL (70-99) H Calcium Level 8.9 mg/dL (8.5-10.1) Magnesium Level 1.7 mg/dL (1.8-2.4) L Total Bilirubin 4.2 mg/dL (0.2-1.0) H Aspartate Amino Transferase (AST) 376 U/L (15-37) H Alanine Aminotransferase (ALT) 71 U/L (14-59) H Alkaline Phosphatase 181 U/L (46-116) H Creatine Kinase 28 U/L (26-192) Total Protein 8.4 g/dL (6.4-8.2) H Albumin 2.9 g/dL (3.4-5.0) L Albumin/Globulin Ratio 0.5 (1.0-1.7) L Lipase 1691 U/L (73-393) H Salicylates Level < 0.2 mg/dL (2.8-20.0) L Salicylate Last Dose Date 05/18/17 Salicylate Last Dose Time Unknown Acetaminophen Level < 2.0 mcg/mL (10-30) L Acetaminophen Last Dose Date 05/18/17 Acetaminophen Last Dose Time Unknown Ethyl Alcohol Level 198 mg/dL (0-10) H Urine Collection Type Unknown Urine Color Yellow Urine Clarity Hazy Urine pH 6.0 Urine Specific [place] 1.010 Urine Protein Trace (NEG-TRACE) Urine Glucose (UA) >=1000 mg/dL (NEG) Urine Ketones (Stick) 80 mg/dL (NEG) Urine Blood Neg (NEG) Urine Nitrite Neg (NEG) Urine Bilirubin Neg (NEG) Urine Urobilinogen Dipstick 4 mg/dL (0.2 mg/dL) Urine Leukocyte Esterase Neg (NEG) Urine RBC 3-5 /HPF (0-2) Urine WBC 1-4 /HPF (0-4) Urine Squamous Epithelial Cells Many /LPF Urine Bacteria 0 /HPF (0-FEW) Urine Yeast Present /HPF Urine Opiates Screen Neg (NEG) Urine Methadone Screen Neg (NEG) Urine Barbiturates Neg (NEG) Urine Phencyclidine Screen Neg (NEG) Urine Amphetamine/Methamphetamine Neg (NEG) Urine Benzodiazepines Screen Neg (NEG) Urine Cocaine Screen Neg (NEG) Urine Cannabinoids Screen Neg (NEG) Urine Ethyl Alcohol Pos (NEG) Stool Occult Blood Negative (NEG) Glucose (Fingerstick) 523 mg/dL (70-99) *H EKG EKG [] Radiology/Procedures Radiology/Procedures CT abdomen and pelvis with contrast HISTORY: Abdominal pain, elevated bilirubin, weakness, anemia, pancreatitis. TECHNIQUE: Helical CT imaging of the abdomen and pelvis acquired with 75 mL Omnipaque 300 intravenous contrast. Abdomen findings: Small subpleural groundglass nodules left lower lobe posteriorly largest measuring 7 mm. Marked hypodensity of the liver likely fatty. Disc bulges lower lumbar spine with probable spinal canal stenosis at L5-S1. There may be hepatomegaly. Gallbladder, pancreas, adrenal glands, spleen and kidneys are unremarkable. No obstruction or inflammatory changes in GI tract. Appendix is not visualized may be obscured by surrounding bowel loops. No abdominal fluid or adenopathy. Pelvis findings: Ovaries, uterus, bladder, rectum and bones are unremarkable. No pelvic fluid or adenopathy. IMPRESSION: 1. No acute process. 2. Fatty liver. Probable mild hepatomegaly. 3. 2 subpleural left lower lobe groundglass pulmonary nodules largest measuring 7 mm. Per Fleischner guidelines follow-up CT imaging in 6-12 months is advised. Exposure: One or more of the following individualized dose reduction techniques were utilized for this examination: 1. Automated exposure control 2. Adjustment of the mA and/or kV according to patient size 3. Use of iterative reconstruction technique Electronically signed by: Myles Downs MD (05/18/2017 8:10 PM) [facility] DICTATED AND SIGNED BY: MYLES DOWNS MD DATE: 05/18/172001 Course & Med Decision Making Course & Med Decision Making Patient with multiple metabolic derangements likely related to alcoholic ketoacidosis and chronic alcoholism. Patient also has anemia from unknown etiology however there is does not appear to be any acute blood loss conditions. Patient is [place] but is consenting to blood. I will order 2 units of packed red blood in addition to aggressive IV fluid and electrolyte replacement. Patient encouraged to eat and drink something. She is started on a DKA protocol as well given there is no definitive way to tell if this is diabetic ketoacidosis or alcoholic ketoacidosis. Patient will be admitted to the ICU in critical condition. Critical care time of 35 minutes. Dragon Disclaimer Dragon Disclaimer This electronic medical record was generated, in whole or in part, using a voice recognition dictation system. Departure Departure: Impression: Primary Impression: DKA (diabetic ketoacidoses) Additional Impressions: Anemia Alcohol abuse Hypokalemia Hypomagnesemia Disposition: ADMITTED INPATIENT Admitting Physician: Ignacio Sharma Condition: CRITICAL Referrals: PCP,UNKNOWN (PCP) Problem Qualifiers Primary Impression: DKA (diabetic ketoacidoses) Diabetes mellitus type: type 2 Diabetes mellitus complication detail: without coma Qualified Codes: E11.10 - Type 2 diabetes mellitus with ketoacidosis without coma STEFANY FLOOD DO May 18, 2017 22:53
[2017-05-18 23:00] VITALS: BP 110/68
[2017-05-18 23:32] LABS: RED BLOOD COUNT 1.62 x10^6/uL (3.50-5.40); RED CELL DISTRIBUTION WIDTH 16.7 % (11.5-14.5)
[2017-05-18 23:43] LABS: CALCIUM 7.9 mg/dL (8.5-10.1); CREATININE 1.1 mg/dL (0.6-1.0); GFR 57.9; POTASSIUM 4.2 mmol/L (3.5-5.1)
[2017-05-18 23:44] LABS: HEMOGLOBIN 5.9 g/dL (12.0-15.5)
[2017-05-18 23:45] LABS: HEMATOCRIT 18.7 % (36.0-47.0)
[2017-05-19] VITALS (24 sets, daily range): BP systolic 90–116; BP diastolic 55–84
[2017-05-19] MEDS: IV NORMAL SALINE 1,000ML 1,000 ML IV SCH ×2 (01:05→01:59)
[2017-05-19] MEDS ORDERED: IV NORMAL SALINE 1,000ML 1,000 ML IV SCH (03:00)
[2017-05-19 03:05] LABS: CALCIUM 7.5 mg/dL (8.5-10.1); GFR 64.7; POTASSIUM 3.5 mmol/L (3.5-5.1)
[2017-05-19 07:11] LABS: BASO % 2 % (0-3); EOS % 0 % (0-3); HEMATOCRIT 25.4 % (36.0-47.0); HEMOGLOBIN 8.6 g/dL (12.0-15.5); LYMPH % 12 % (24-48); MEAN CORPUSCULAR HEMOGLOBIN 33 pg (25-35); MEAN CORPUSCULAR HGB CONC 34 g/dL (31-37); MEAN CORPUSCULAR VOLUME 97 fL (79-100); MONO % 6 % (0-9); NEUT # 6.4 x10^3uL (1.8-7.7); NEUT % 80 % (31-73); PLATELET COUNT 125 x10^3/uL (140-400); RED BLOOD COUNT 2.61 x10^6/uL (3.50-5.40); RED CELL DISTRIBUTION WIDTH 22.8 % (11.5-14.5)
[2017-05-19 07:12] LABS: BASO # 0.2 x10^3/uL (0.0-0.2); MONO # 0.5 x10^3/uL (0.0-1.1)
[2017-05-19 07:14] LABS: CALCIUM 7.4 mg/dL (8.5-10.1); GFR 83.7; POTASSIUM 3.8 mmol/L (3.5-5.1)
[2017-05-19 07:17] LABS: CREATININE 0.8 mg/dL (0.6-1.0)
[2017-05-19] MEDS ORDERED: IBUP800T19 PO (10:09)
[2017-05-19] MEDS ORDERED: MELO15TA23 PO (10:09)
[2017-05-19] MEDS ORDERED: ACET-704 PO (10:40)
[2017-05-19] MEDS ORDERED: CLON-276 PO (10:40)
[2017-05-19] MEDS ORDERED: IBUP400T18 PO (10:40)
[2017-05-19] MEDS ORDERED: ALBU8.5H8 INH (10:40)
[2017-05-19] MEDS ORDERED: DEXTROSE 50% 25 GM / 50ML DISP.SYRIN. IV PRN (11:00)
[2017-05-19] MEDS: IPRATRPIUM/ALBUTEROL 0.5/2.5MG 3 ML NEBU. NEB SCH ×3 (11:55→21:34)
[2017-05-19] MEDS: INSULIN ASPART 300 UNITS/3 ML INSULN.PEN SQ SCH ×5 (13:41→21:25)
[2017-05-19] MEDS: ENOXAPARIN 30 MG/0.3 ML DISP.SYRIN. SQ SCH (13:41)
[2017-05-19] MEDS: guaiFENesin DM 600/30MG 1 TAB TAB.ER.12H PO SCH ×2 (13:43→21:20)
[2017-05-19] MEDS ORDERED: chlordiazePOXIDE HCL 25 MG CAPSULE PO PRN ×2 (14:30)
--- NOTE | 2017-05-19 14:57 | HP ---
ADMIT DATE: 05/18/2017 REASON FOR ADMISSION AND HISTORY OF PRESENT ILLNESS: This is a 32-year-old female with chronic alcoholic problems, presented to the Emergency Department complaining of generalized weakness, fatigue, lateral leg numbness, scleral icterus and wanting to come off of alcohol. She drinks one-half to 1 pint of vodka daily. She has been drinking since age 18 and has only had a few days since that time of alcohol free. PAST MEDICAL HISTORY: Type 2 diabetes, not checking her sugars; tobacco use disorder; bipolar disorder; history of MRSA; history of seizures. PAST SURGICAL HISTORY: x 2 and vaginal reconstruction and a patent ductus surgery as a child. FAMILY HISTORY: Sister committed suicide in her 30s, she had had a couple of strokes. Does not know her father's history. Maternal history, positive for diabetes, hyperglycemia and strokes on that side as well. HABITS: Smokes 1/2 pack of cigarettes per day. Denies other drug use, but does drink one-half to 1 pint of vodka a day. REVIEW OF SYSTEMS: Negative for fever, sore throat. Positive shortness of breath. Positive cough. Negative chest pain, negative stomach pains. Negative dysphagia. Denies heavy periods but does get regular periods. Positive for numbness on her left leg, positive visual problems with seeing up-close. Denies diarrhea, constipation, hematuria, black stools, tarry stools, bloody stools. OBJECTIVE: VITAL SIGNS: Blood pressure 106/69, pulse 120, respirations 24, pulse ox 98% on room air, temperature 98.3, height 67 inches, weight 128.5 pounds. GENERAL: A 32-year-old ill-appearing female, in no acute distress. She does have a continuous cough. HEENT: Hearing is normal. She wears glasses. Vision is slightly blurred. Nose patent. Throat clear. Poor dentition noted. NECK: Supple, without adenopathy. LUNGS: Clear to auscultation. CARDIOVASCULAR: Rapid rhythm and rate without murmur. ABDOMEN: Soft, nontender. EXTREMITIES: Without edema. Feet have intact pulses. No hair growth. Sensation is intact, although she says it is numb. Gait was not examined. Cognitively, she is intact. LABORATORY DATA: Initial hemoglobin was 7, decreased to 5.9 and this morning is 8.6 after blood transfusion. Platelet count 125,000. Chemistry: Highest glucose 444, elevated bilirubin of 4.2, AST 376, ALT of 71, alkaline phosphatase 181. Albumin 2.9, lipase 1691. Potassium 3.1, magnesium of 1.7. Lactic acid was 9.2, is now decreased to 3.1 this morning. CO2 was 16. Urinalysis, positive for ketones, greater than 1000 glucose. Coag was negative. Drug screen, positive for alcohol 198 that was yesterday evening. Stool occult negative. ASSESSMENT: 1. Alcoholic liver disease. 2. Elevated liver function tests. 3. Alcoholic liver failure, question whether this is chronic. Abdominal CT showed fatty liver and probable mild hepatomegaly. 4. Poorly controlled diabetes. We will check hemoglobin A1c. 5. Diabetic ketoacidosis, placed on insulin drip. 6. Tobacco use disorder. 7. Questionable neuropathy. We will ask Dr. Knight to see. 8. Visual disturbance, probably secondary to elevated blood sugars. 9. General debilitation. 10. Severe protein-calorie malnutrition. 11. Hypokalemia. 12. Metabolic acidosis. 13. Lactic acidosis. 14. Severe anemia, may be related to alcoholism as no source of bleeding currently. PLAN: Treat all these multiple medical problems, alcohol withdrawal protocol. She will need rehab afterwards. Replace her potassium. KAYLEIGH DOW DO DR: HILL/marge JOB#: [id number] / [id number]
[2017-05-19] MEDS: MVI, ADULT NO.4 WITH VIT K 10 ML, THIAMINE 100 MG, FOLIC ACID 1 MG in IV NORMAL SALINE ... IV SCH ×4 (15:23)
[2017-05-19] MEDS ORDERED: LACTULOSE 20 GM/30 ML SOLUTION. PO SCH (18:00)
[2017-05-19] MEDS: LACTULOSE 20 GM/30 ML SOLUTION. PO SCH (18:48)
[2017-05-19] MEDS ORDERED: INSULIN DETEMIR 300 UNITS/3 ML INSULN.PEN. SQ SCH (21:00)
[2017-05-20 00:01] VITALS: BP 105/70
[2017-05-20 02:00] VITALS: BP 104/67
[2017-05-20 03:00] VITALS: BP 99/64
[2017-05-20 04:09] LABS: HEMOGLOBIN A1C 5.7 % (4.8-5.6)
[2017-05-20 05:00] VITALS: BP 97/68
[2017-05-20] MEDS: IPRATRPIUM/ALBUTEROL 0.5/2.5MG 3 ML NEBU. NEB SCH ×2 (05:57→09:08)
[2017-05-20 06:00] VITALS: BP 91/57
[2017-05-20 06:34] LABS: BASO # 0.1 x10^3/uL (0.0-0.2); BASO % 1 % (0-3); EOS # 0.1 x10^3/uL (0.0-0.7); EOS % 1 % (0-3); HEMATOCRIT 24.7 % (36.0-47.0); HEMOGLOBIN 8.3 g/dL (12.0-15.5); LYMPH # 1.3 x10^3/uL (1.0-4.8); LYMPH % 16 % (24-48); MEAN CORPUSCULAR HEMOGLOBIN 33 pg (25-35); MEAN CORPUSCULAR HGB CONC 34 g/dL (31-37); MEAN CORPUSCULAR VOLUME 98 fL (79-100); MONO # 0.6 x10^3/uL (0.0-1.1); MONO % 8 % (0-9); NEUT # 5.8 x10^3uL (1.8-7.7); NEUT % 74 % (31-73); PLATELET COUNT 127 x10^3/uL (140-400); RED BLOOD COUNT 2.53 x10^6/uL (3.50-5.40); RED CELL DISTRIBUTION WIDTH 23.9 % (11.5-14.5); WHITE BLOOD COUNT 7.8 x10^3/uL (4.0-11.0)
[2017-05-20 06:50] LABS: ALBUMIN 2.1 g/dL (3.4-5.0); ALBUMIN/GLOBULIN RATIO 0.5 (1.0-1.7); CREATININE 0.7 mg/dL (0.6-1.0); GFR 97.6; MAGNESIUM 1.4 mg/dL (1.8-2.4); POTASSIUM 3.8 mmol/L (3.5-5.1); TOTAL BILIRUBIN 5.6 mg/dL (0.2-1.0); TOTAL PROTEIN 6.2 g/dL (6.4-8.2)
[2017-05-20] MEDS: INSULIN ASPART 300 UNITS/3 ML INSULN.PEN SQ SCH ×2 (08:31)
[2017-05-20] MEDS: LACTULOSE 20 GM/30 ML SOLUTION. PO SCH (08:34)
[2017-05-20] MEDS: guaiFENesin DM 600/30MG 1 TAB TAB.ER.12H PO SCH (08:35)
[2017-05-20] MEDS: ENOXAPARIN 30 MG/0.3 ML DISP.SYRIN. SQ SCH (08:35)
[2017-05-20] MEDS ORDERED: NICOTINE 21MG PATCH. TD SCH (09:00)
[2017-05-20 09:20] VITALS: BP 116/65
--- NOTE | 2017-05-20 09:21 | RAD ---
Examination: Ultrasound abdomen complete History: History of increasing liver enzymes, liver failure Comparison: None available Findings: The pancreas, aorta, IVC are poorly visualized due to bowel gas. The liver measures 19.9 cm. Increased echogenicity noted throughout the liver likely hepatic steatosis. There is moderate amount of echogenicity identified in the gallbladder likely sludge. There is pericholecystic fluid identified. No ultrasonographic evidence of Navarrete's sign. The common bile duct measures 3.6 mm in transverse dimension. The right kidney measures 10.5 cm in length. The left kidney measures 10.5 cm in length. The spleen measures 13.5 cm. Impression: 1. Hepatomegaly with hepatic steatosis. 2. Moderate amount of sludge within the gallbladder with mild pericholecystic fluid probably due to underlying liver disease , cholecystitis is not completely excluded however no evidence of ultrasonographic Navarrete's sign. Consider HIDA scan for further evaluation. Correlate clinically. 3. Mild splenomegaly.
[2017-05-20] MEDS ORDERED: ENOXAPARIN 40 MG/0.4 ML DISP.SYRIN. SQ SCH (10:15)
[2017-05-20] MEDS: MVI, ADULT NO.4 WITH VIT K 10 ML, THIAMINE 100 MG, FOLIC ACID 1 MG in IV NORMAL SALINE ... IV SCH ×4 (10:35)
--- NOTE | 2017-05-20 11:30 | PDOC3 ---
Discharge Summary Visit Information Date of Admission: May 18, 2017 Date of Discharge: May 20, 2017 Final Diagnosis Problems Medical Problems: (1) Alcohol abuse Status: Acute (2) Anemia Status: Acute (3) DKA (diabetic ketoacidoses) Status: Acute (4) Hypokalemia Status: Acute (5) Hypomagnesemia Status: Acute : 1. Alcoholic liver failure with jaundice 2. Elevated liver function tests. 3. Alcoholic liver failure, question whether this is chronic. Abdominal CT showed fatty liver and probable mild hepatomegaly. 4. diabetes type 2 according to patient with dka- We will check hemoglobin A1c. -5.7 5. Diabetic ketoacidosis, placed on insulin drip. 6. Tobacco use disorder. 7. Questionable neuropathy. We will ask Dr. Knight to see. 8. Visual disturbance, probably secondary to elevated blood sugars. 9. General debilitation. 10. Severe protein-calorie malnutrition. 11. Hypokalemia. 12. Metabolic acidosis. 13. Lactic acidosis. 14. Severe MACROCYTIC anemia, may be related to alcoholism-received 2 units of prbc 15 MRSA POS 16. SEVERE PROTEIN CALORIE MALNUTRITION 17. DVT PROPHYLAXI 18. URI Problems: Brief Hospital Course Allergies Allergies Coded Allergies Type Severity Reaction Last Updated Verified tramadol Allergy Intermediate 05/19/17 Yes I S O L A T I O N *CONTACT* Allergy Unknown 05/20/17 Yes Vital Signs Vital Signs Date Time Temp Pulse Resp B/P (MAP) Pulse Ox O2 Delivery O2 Flow Rate FiO2 05/20/17 10:56 98.0 05/20/17 09:20 116/65 (82) Room Air 05/20/17 09:09 100 05/20/17 06:00 104 18 Lab Results Laboratory Tests Test 05/18/17 18:10 05/18/17 18:34 05/18/17 20:00 05/18/17 22:02 White Blood Count 9.7 x10^3/uL (4.0-11.0) Red Blood Count 1.94 x10^6/uL (3.50-5.40) Hemoglobin 7.0 g/dL (12.0-15.5) Hematocrit 21.8 % (36.0-47.0) Mean Corpuscular Volume 112 fL (79-100) Mean Corpuscular Hemoglobin 36 pg (25-35) Mean Corpuscular Hemoglobin Concent 32 g/dL (31-37) Red Cell Distribution Width 16.5 % (11.5-14.5) Platelet Count 183 x10^3/uL (140-400) Neutrophils (%) (Auto) 85 % (31-73) Lymphocytes (%) (Auto) 9 % (24-48) Monocytes (%) (Auto) 5 % (0-9) Eosinophils (%) (Auto) 0 % (0-3) Basophils (%) (Auto) 1 % (0-3) Neutrophils # (Auto) 8.2 x10^3uL (1.8-7.7) Lymphocytes # (Auto) 0.9 x10^3/uL (1.0-4.8) Monocytes # (Auto) 0.5 x10^3/uL (0.0-1.1) Eosinophils # (Auto) 0.0 x10^3/uL (0.0-0.7) Basophils # (Auto) 0.1 x10^3/uL (0.0-0.2) Platelet Estimate Adequate (ADEQUATE) Polychromasia Present Anisocytosis Slight Macrocytosis Mod Target Cells Few Tear Drop Cells Occ Prothrombin Time 11.4 SEC (9.4-11.4) Prothromb Time International Ratio 1.1 (0.9-1.1) Activated Partial Thromboplast Time 24 SEC (23-33) Sodium Level 136 mmol/L (136-145) Potassium Level 3.1 mmol/L (3.5-5.1) Chloride Level 97 mmol/L (98-107) Carbon Dioxide Level 16 mmol/L (21-32) Anion Gap 23 (6-14) Blood Urea Nitrogen 6 mg/dL (7-20) Creatinine 1.1 mg/dL (0.6-1.0) Estimated GFR (Cockcroft-Gault) 57.9 BUN/Creatinine Ratio 5 (6-20) Glucose Level 388 mg/dL (70-99) Calcium Level 8.9 mg/dL (8.5-10.1) Magnesium Level 1.7 mg/dL (1.8-2.4) Total Bilirubin 4.2 mg/dL (0.2-1.0) Aspartate Amino Transf (AST/SGOT) 376 U/L (15-37) Alanine Aminotransferase (ALT/SGPT) 71 U/L (14-59) Alkaline Phosphatase 181 U/L (46-116) Creatine Kinase 28 U/L (26-192) Total Protein 8.4 g/dL (6.4-8.2) Albumin 2.9 g/dL (3.4-5.0) Albumin/Globulin Ratio 0.5 (1.0-1.7) Lipase 1691 U/L (73-393) Vitamin B12 Level 794 pg/mL (247-911) Thyroid Stimulating Hormone (TSH) 4.200 uIU/mL (0.358-3.740) Salicylates Level < 0.2 mg/dL (2.8-20.0) Salicylate Last Dose Date 05/18/17 Salicylate Last Dose Time Unknown Acetaminophen Level < 2.0 mcg/mL (10-30) Acetaminophen Last Dose Date 05/18/17 Acetaminophen Last Dose Time Unknown Ethyl Alcohol Level 198 mg/dL (0-10) Urine Collection Type Unknown Urine Color Yellow Urine Clarity Hazy Urine pH 6.0 Urine Specific [place] 1.010 Urine Protein Trace (NEG-TRACE) Urine Glucose (UA) >=1000 mg/dL (NEG) Urine Ketones (Stick) 80 mg/dL (NEG) Urine Blood Neg (NEG) Urine Nitrite Neg (NEG) Urine Bilirubin Neg (NEG) Urine Urobilinogen Dipstick 4 mg/dL (0.2 mg/dL) Urine Leukocyte Esterase Neg (NEG) Urine RBC 3-5 /HPF (0-2) Urine WBC 1-4 /HPF (0-4) Urine Squamous Epithelial Cells Many /LPF Urine Bacteria 0 /HPF (0-FEW) Urine Yeast Present /HPF Urine Opiates Screen Neg (NEG) Urine Methadone Screen Neg (NEG) Urine Barbiturates Neg (NEG) Urine Phencyclidine Screen Neg (NEG) Urine Amphetamine/Methamphetamine Neg (NEG) Urine Benzodiazepines Screen Neg (NEG) Urine Cocaine Screen Neg (NEG) Urine Cannabinoids Screen Neg (NEG) Urine Ethyl Alcohol Pos (NEG) Stool Occult Blood Negative (NEG) Glucose (Fingerstick) 523 mg/dL (70-99) Test 05/18/17 23:20 05/19/17 00:18 05/19/17 01:23 05/19/17 02:29 White Blood Count 8.0 x10^3/uL (4.0-11.0) Red Blood Count 1.62 x10^6/uL (3.50-5.40) Hemoglobin 5.9 g/dL (12.0-15.5) Hematocrit 18.7 % (36.0-47.0) Mean Corpuscular Volume 115 fL (79-100) Mean Corpuscular Hemoglobin 37 pg (25-35) Mean Corpuscular Hemoglobin Concent 32 g/dL (31-37) Red Cell Distribution Width 16.7 % (11.5-14.5) Platelet Count 143 x10^3/uL (140-400) Nasal Screen MRSA (PCR) Positive (Negative) Sodium Level 137 mmol/L (136-145) Potassium Level 4.2 mmol/L (3.5-5.1) Chloride Level 102 mmol/L (98-107) Carbon Dioxide Level 15 mmol/L (21-32) Anion Gap 20 (6-14) Blood Urea Nitrogen 5 mg/dL (7-20) Creatinine 1.1 mg/dL (0.6-1.0) Estimated GFR (Cockcroft-Gault) 57.9 Glucose Level 444 mg/dL (70-99) Lactic Acid Level 9.2 mmol/L (0.4-2.0) Calcium Level 7.9 mg/dL (8.5-10.1) Glucose (Fingerstick) 353 mg/dL (70-99) 204 mg/dL (70-99) 185 mg/dL (70-99) Test 05/19/17 02:45 05/19/17 03:43 05/19/17 04:47 05/19/17 05:34 Sodium Level 137 mmol/L (136-145) Potassium Level 3.5 mmol/L (3.5-5.1) Chloride Level 104 mmol/L (98-107) Carbon Dioxide Level 15 mmol/L (21-32) Anion Gap 18 (6-14) Blood Urea Nitrogen 4 mg/dL (7-20) Creatinine 1.0 mg/dL (0.6-1.0) Estimated GFR (Cockcroft-Gault) 64.7 Glucose Level 168 mg/dL (70-99) Lactic Acid Level 7.8 mmol/L (0.4-2.0) Calcium Level 7.5 mg/dL (8.5-10.1) Glucose (Fingerstick) 160 mg/dL (70-99) 70 mg/dL (70-99) 73 mg/dL (70-99) Test 05/19/17 06:33 05/19/17 06:55 05/19/17 07:33 05/19/17 09:43 Glucose (Fingerstick) 102 mg/dL (70-99) 109 mg/dL (70-99) 157 mg/dL (70-99) White Blood Count 8.0 x10^3/uL (4.0-11.0) Red Blood Count 2.61 x10^6/uL (3.50-5.40) Hemoglobin 8.6 g/dL (12.0-15.5) Hematocrit 25.4 % (36.0-47.0) Mean Corpuscular Volume 97 fL (79-100) Mean Corpuscular Hemoglobin 33 pg (25-35) Mean Corpuscular Hemoglobin Concent 34 g/dL (31-37) Red Cell Distribution Width 22.8 % (11.5-14.5) Platelet Count 125 x10^3/uL (140-400) Neutrophils (%) (Auto) 80 % (31-73) Lymphocytes (%) (Auto) 12 % (24-48) Monocytes (%) (Auto) 6 % (0-9) Eosinophils (%) (Auto) 0 % (0-3) Basophils (%) (Auto) 2 % (0-3) Neutrophils # (Auto) 6.4 x10^3uL (1.8-7.7) Lymphocytes # (Auto) 1.0 x10^3/uL (1.0-4.8) Monocytes # (Auto) 0.5 x10^3/uL (0.0-1.1) Eosinophils # (Auto) 0.0 x10^3/uL (0.0-0.7) Basophils # (Auto) 0.2 x10^3/uL (0.0-0.2) Sodium Level 134 mmol/L (136-145) Potassium Level 3.8 mmol/L (3.5-5.1) Chloride Level 102 mmol/L (98-107) Carbon Dioxide Level 17 mmol/L (21-32) Anion Gap 15 (6-14) Blood Urea Nitrogen 4 mg/dL (7-20) Creatinine 0.8 mg/dL (0.6-1.0) Estimated GFR (Cockcroft-Gault) 83.7 Glucose Level 100 mg/dL (70-99) Hemoglobin A1c 5.7 % (4.8-5.6) Lactic Acid Level 3.1 mmol/L (0.4-2.0) Calcium Level 7.4 mg/dL (8.5-10.1) Iron Level 129 ug/dL (50-170) Total Iron Binding Capacity 134 ug/dL (250-450) Iron Saturation 96 % (15-34) Test 05/19/17 10:53 05/19/17 11:30 05/19/17 13:32 05/19/17 14:50 Glucose (Fingerstick) 216 mg/dL (70-99) 216 mg/dL (70-99) 242 mg/dL (70-99) Ammonia 55 mcmol/L (11-34) Test 05/19/17 15:26 05/19/17 16:50 05/19/17 21:10 05/20/17 05:43 Glucose (Fingerstick) 185 mg/dL (70-99) 165 mg/dL (70-99) 248 mg/dL (70-99) White Blood Count 7.8 x10^3/uL (4.0-11.0) Red Blood Count 2.53 x10^6/uL (3.50-5.40) Hemoglobin 8.3 g/dL (12.0-15.5) Hematocrit 24.7 % (36.0-47.0) Mean Corpuscular Volume 98 fL (79-100) Mean Corpuscular Hemoglobin 33 pg (25-35) Mean Corpuscular Hemoglobin Concent 34 g/dL (31-37) Red Cell Distribution Width 23.9 % (11.5-14.5) Platelet Count 127 x10^3/uL (140-400) Neutrophils (%) (Auto) 74 % (31-73) Lymphocytes (%) (Auto) 16 % (24-48) Monocytes (%) (Auto) 8 % (0-9) Eosinophils (%) (Auto) 1 % (0-3) Basophils (%) (Auto) 1 % (0-3) Neutrophils # (Auto) 5.8 x10^3uL (1.8-7.7) Lymphocytes # (Auto) 1.3 x10^3/uL (1.0-4.8) Monocytes # (Auto) 0.6 x10^3/uL (0.0-1.1) Eosinophils # (Auto) 0.1 x10^3/uL (0.0-0.7) Basophils # (Auto) 0.1 x10^3/uL (0.0-0.2) Sodium Level 138 mmol/L (136-145) Potassium Level 3.8 mmol/L (3.5-5.1) Chloride Level 106 mmol/L (98-107) Carbon Dioxide Level 18 mmol/L (21-32) Anion Gap 14 (6-14) Blood Urea Nitrogen 3 mg/dL (7-20) Creatinine 0.7 mg/dL (0.6-1.0) Estimated GFR (Cockcroft-Gault) 97.6 BUN/Creatinine Ratio 4 (6-20) Glucose Level 39 mg/dL (70-99) Lactic Acid Level 3.6 mmol/L (0.4-2.0) Calcium Level 8.0 mg/dL (8.5-10.1) Magnesium Level 1.4 mg/dL (1.8-2.4) Total Bilirubin 5.6 mg/dL (0.2-1.0) Direct Bilirubin 4.8 mg/dL (0.0-0.2) Aspartate Amino Transf (AST/SGOT) 479 U/L (15-37) Alanine Aminotransferase (ALT/SGPT) 90 U/L (14-59) Alkaline Phosphatase 156 U/L (46-116) Total Protein 6.2 g/dL (6.4-8.2) Albumin 2.1 g/dL (3.4-5.0) Albumin/Globulin Ratio 0.5 (1.0-1.7) Test 05/20/17 07:14 05/20/17 08:27 Glucose (Fingerstick) 36 mg/dL (70-99) 84 mg/dL (70-99) Brief Hospital Course Ms. Adams is a 32 old [sex] who presented with [ ] REASON FOR ADMISSION AND HISTORY OF PRESENT ILLNESS: This is a 32-year-old female with chronic alcoholic problems, presented to the Emergency Department complaining of generalized weakness, fatigue, lateral leg numbness, scleral icterus and wanting to come off of alcohol. She drinks one-half to 1 pint of vodka daily. She has been drinking since age 18 and has only had a few days since that time of alcohol free. EXCEPT FOR HER PREGNANCIES. SHE WAS FOUND TO BE SEVERLY ANEMIC AND WAS TRANSFUSED 2 UNITS OF PRBCS. HER B12 WAS NORMAL IN SPITE OF SEVERE MACROCYTOSIS.SHE WAS IN MILD DKA AND WAS TREATED WITH THE INSULIN DRIP PROTOCOL. SHE IS A TYPE 2 DIABETIC AND WAS NOT ON INSULIN PROIO TO ADMISSION. HER HGB A1C WAS 5.7. SHE IS JAUNDICED AND HER LIVER FUNCTION TESTS DID NOT IMPROVE AND WORSENED. SHE WAS STARTED ON LACTULOSE. HER ELECTROLYE DEFICIENCIES WERE TREATED. SHE HAS BEEN MILDLY CONFUSED TO DATES , TIMELINES AND HER HOME MEDICATIONS. IF SHE RECOVERS FROM HER LIVER FAILURE I STRONGLY RECOMMEND THAT SHE GO TO ALCOHOL REHAB. Discharge Information Disposition/Orders: D/C to Another Facility (WORSENING LIVER FAILURE) Dischare Medications Current Medications Ondansetron HCl (Zofran) 4 mg 1X ONCE IV Last administered on 05/18/17at 19:05; Start 05/18/17 at 18:45; Stop 05/18/17 at 18:46; Status DC Sodium Chloride 1,000 ml @ 1,000 mls/hr 1X ONCE IV Last administered on at 19:04; Start 05/18/17 at 18:30; Stop 05/18/17 at 19:29; Status DC Multivitamins/ Calcium (Thera-M Plus) 1 tab 1X ONCE PO Last administered on 05/18/17at 19:57; Start 05/18/17 at 19:00; Stop 05/18/17 at 19:01; Status DC Multivitamins/ Minerals 10 ml/ Folic Acid 1 mg/ Thiamine HCl 100 mg/Sodium Chloride 1,011.1 ml @ 1,000 mls/ hr 1X ONCE IV Last administered on 05/18/17at 19:57; Start 05/18/17 at 18:45; Stop 05/18/17 at 19:45; Status DC Magnesium Oxide (Magnesium Oxide) 800 mg 1X ONCE PO Last administered on at 19:14; Start 05/18/17 at 19:15; Stop 05/18/17 at 19:16; Status DC Potassium Chloride (Klor-Con) 40 meq 1X ONCE PO Last administered on 05/18/17at 19:14; Start 05/18/17 at 19:15; Stop 05/18/17 at 19:16; Status DC Potassium Chloride 100 ml @ 50 mls/hr 1X ONCE IV Last administered on at 19:13; Start 05/18/17 at 19:00; Stop 05/18/17 at 20:59; Status DC Iohexol (Omnipaque 300 Mg/ml) 75 ml 1X ONCE IV Last administered on 05/18/17at 19:37; Start 05/18/17 at 19:30; Stop 05/18/17 at 19:31; Status DC Info (Do NOT chart on this entry -- for MONITORING) 1 each PRN DAILY PRN MC SEE COMMENTS; Start 05/18/17 at 19:15; Stop 05/20/17 at 19:14 Dextrose/Sodium Chloride 1,000 ml @ 0 mls/hr Q0M IV ; Start 05/18/17 at 19:51; Status UNV Insulin Human Regular 150 unit/ Sodium Chloride 151.5 ml @ 0 mls/hr CONT PRN PRN IV PER PROTOCOL Last administered on 05/18/17at 23:16; Start 05/18/17 at 20:00 Fluconazole (Diflucan) 150 mg 1X ONCE PO Last administered on 05/18/17at 20:45; Start 05/18/17 at 20:45; Stop 05/18/17 at 20:46; Status DC Sodium Chloride 150 ml @ As Directed STK-MED ONCE .ROUTE ; Start 05/18/17 at 20: 42; Stop 05/18/17 at 20:43; Status DC Potassium Chloride/Sodium Chloride 1,000 ml @ 150 mls/hr 1X ONCE IV Last administered on 05/19/17at 03:38; Start 05/18/17 at 21:30; Stop 05/19/17 at 04:09; Status DC Ondansetron HCl (Zofran) 4 mg PRN Q4HRS PRN IV NAUSEA/VOMITING; Start 05/18/17 at 21:30; Stop 05/19/17 at 21:29; Status DC Sodium Chloride 1,000 ml @ 1,000 mls/hr Q1H IV Last administered on 05/19/17at 01:59; Start 05/19/17 at 01:00; Stop 05/19/17 at 02:48; Status DC Sodium Chloride 1,000 ml @ 50 mls/hr Q20H IV Last administered on 05/19/17at 00: 15; Start 05/19/17 at 03:00; Stop 05/19/17 at 21:20; Status DC Albuterol/ Ipratropium (Duoneb) 3 ml RTQID NEB Last administered on 05/20/17at 09 :08; Start 05/19/17 at 12:00 Enoxaparin Sodium (Lovenox) 30 mg DAILY SQ Last administered on 05/20/17at 08:35 ; Start 05/19/17 at 12:00; Stop 05/20/17 at 10:10; Status DC Insulin Detemir (Levemir) 20 units QHS SQ Last administered on 05/19/17at 21:25; Start 05/19/17 at 21:00 Insulin Aspart (NovoLOG) 0-7 UNITS QIDACHS SQ Last administered on 05/19/17at 21: 25; Start 05/19/17 at 11:30 Dextrose 12.5 gm PRN Q15MIN PRN IV SEE COMMENTS Last administered on 05/20/17at 07:23; Start 05/19/17 at 11:00 Insulin Aspart (NovoLOG) 10 units TIDAC SQ ; Start 05/19/17 at 11:30 Guaifenesin (MUCINEX ER with DM) 1 tab BID PO Last administered on 05/20/17at 08: 35; Start 05/19/17 at 14:00 Multivitamins/ Minerals 10 ml/ Thiamine HCl 100 mg/Folic Acid 1 mg/Sodium Chloride 1,011.2 ml @ 100 mls/ hr DAILY IV Last administered on 05/20/17at 10:35 ; Start 05/19/17 at 14:30; Stop 05/24/17 at 14:29 Chlordiazepoxide (Librium) 50 mg PRN Q1HR PRN PO For CIWA 8-14 Last administered on 05/19/17at 20:52; Start 05/19/17 at 14:30 Chlordiazepoxide (Librium) 100 mg PRN Q1HR PRN PO For CIWA 15 or greater; Start 05/19/17 at 14:30 Lactulose 20 gm BID76 PO ; Start 05/19/17 at 18:00; Stop 05/19/17 at 18:00; Status DC Lactulose 20 gm BID76 PO Last administered on 05/20/17at 08:34; Start 05/19/17 at 18:00 Nicotine (Nicoderm Cq 21mg) 1 patch DAILY TD Last administered on 05/20/17at 08: 35; Start 05/20/17 at 09:00 Enoxaparin Sodium (Lovenox) 40 mg Q24H SQ ; Start 05/20/17 at 10:15 Active Scripts Active Ativan (Lorazepam) 1 Mg Tablet 1 Mg PO QIDPRN PRN 10 Days Reported Clonidine Hcl 0.2 Mg Tablet 1 Tab PO BID Proair Hfa Inhaler (Albuterol Sulfate) 8.5 Gm Hfa.aer.ad 2 Puff INH PRN Q6HRS PRN Tylenol With Codeine #3 Tablet (Acetaminophen With Codeine) 1 Each Tablet 1 Tab PO Q6HRS PRN Ibuprofen 400 Mg Tablet 0.5 Tab PO PRN Q6HRS PRN Meloxicam 15 Mg Tablet 1 Tab PO DAILY Patient Instructions Patient Instuctions TRANSFER TO [facility] FOR LEVEL OF CARE WHICH INCLUDES A LIQUID [employer] OR GI. KAYLEIGH DOW DO May 20, 2017 11:30
== END 2017-05-20 11:43 | disposition short-term general hospital (02) | DRG 432 ==
LOC: ER 17:39 → ICU 21:14 → UNDODISIN 05-19 15:30
PROVIDERS: ADMIT Family Medicine; ATTEND Family Medicine
PROC: 30233N1 Transfusion of Nonautologous Red Blood Cells into Peripheral Vein, Percutaneous Approach (ICD-10-PCS; principal; 2017-05-19)
DX: K70.40 Alcoholic hepatic failure without coma (principal); E11.10 Type 2 diabetes mellitus with ketoacidosis without coma; E43 Unspecified severe protein-calorie malnutrition; E83.42 Hypomagnesemia; D53.9 Nutritional anemia, unspecified; D75.89 Other specified diseases of blood and blood-forming organs; F10.20 Alcohol dependence, uncomplicated; E87.6 Hypokalemia; F17.210 Nicotine dependence, cigarettes, uncomplicated; J06.9 Acute upper respiratory infection, unspecified; H53.9 Unspecified visual disturbance; E11.40 Type 2 diabetes mellitus with diabetic neuropathy, unspecified; J45.909 Unspecified asthma, uncomplicated; F31.9 Bipolar disorder, unspecified; K76.0 Fatty (change of) liver, not elsewhere classified; Z79.4 Long term (current) use of insulin; Z79.899 Other long term (current) drug therapy; Z68.20 Body mass index [BMI] 20.0-20.9, adult; Z82.3 Family history of stroke; Z83.3 Family history of diabetes mellitus; Z88.8 Allergy status to other drugs, medicaments and biological substances; Z81.8 Family history of other mental and behavioral disorders; Z86.14 Personal history of Methicillin resistant Staphylococcus aureus infection
CPT/HCPCS: 36415; 74177; 76700; 80048; 80053; 80307; 81001; 82140; 82248; 82274; 82550; 82607; 82728; 82947; 83036; 83540; 83550; 83605; 83690; 83735; 84443; 85025; 85027; 85610; 85730; 86850; 86900; 86901; 86920; 87641; 94640; 96365; 96366; 96368; 96375; G0480; J1650; J1815; J2405; J3480; J7620; P9016; Q9967; 99291-25; G0479; J7030

== ENCOUNTER 2017-06-07 11:27 | Emergency (ER) | payer OTHER ==
[~2017-06-07] VITALS: Ht 170.2 cm; Wt 65.8 kg
[2017-06-07 11:27] VITALS: BP 116/81
[~2017-06-07 11:27] MED LIST changes: +ACET-704 PO; +ALBU8.5H8 INH; +CLON-276 PO; +IBUP400T18 PO; +MELO15TA23 PO
[2017-06-07] MEDS ORDERED: HYDR-971 PO ×2 (12:10→12:14)
--- NOTE | 2017-06-07 12:10 | PHYS DOC ---
Past History Past Medical History: Asthma, Bipolar, Diabetes, MRSA, Seizure, Other Past Surgical History: , Other Smoking: Cigarettes Alcohol Use: Heavy Drug Use: None Adult General Chief Complaint Chief Complaint: ran out of pain medication last night HPI HPI 32-year-old female patient with history of chronic alcoholism and malnutrition was admitted at [facility] recently and discharged home with prescription of P[place], Lyrica, Cymbalta and she ran out of the medication and her doctor office was closed today and her not able to take off tomorrow take her to primary care physician office tomorrow and wants refill of her medication. Patient states she had lower extremity weakness and unable to walk and takes home physical therapy for this problem without any new changes. Review of Systems Review of Systems Constitutional: Denies fever or chills [] Eyes: Denies change in visual acuity, redness, or eye pain [] HENT: Denies nasal congestion or sore throat [] Respiratory: Denies cough or shortness of breath [] Cardiovascular: No additional information not addressed in HPI [] GI: Denies abdominal pain, nausea, vomiting, bloody stools or diarrhea [] : Denies dysuria or hematuria [] Musculoskeletal: Denies back pain, reports extremities pain Integument: Denies rash or skin lesions [] Neurologic: Denies headache, focal weakness or sensory changes [] Endocrine: Denies polyuria or polydipsia [] All other systems were reviewed and found to be within normal limits, except as documented in this note. Allergies Allergies Allergies Coded Allergies Type Severity Reaction Last Updated Verified tramadol Allergy Intermediate 05/19/17 Yes I S O L A T I O N *CONTACT* Allergy Unknown 05/20/17 Yes Physical Exam Physical Exam Constitutional: mild distress, thin,non-toxic appearance. [] HENT: Normocephalic, atraumatic, bilateral external ears normal, oropharynx moist, no oral exudates, nose normal. [] Eyes: PERRLA, EOMI, conjunctiva normal, no discharge. [] Neck: Normal range of motion, no tenderness, supple, no stridor. [] Cardiovascular:Heart rate regular rhythm, no murmur [] Lungs & Thorax: Bilateral breath sounds clear to auscultation [] Extremities: No tenderness, no cyanosis, no clubbing, ROM intact, no edema able to move lower extremities. [] Neurologic: Alert and oriented X 3, normal motor function, normal sensory function, no focal deficits noted. [] EKG EKG [] Radiology/Procedures Radiology/Procedures [] Course & Med Decision Making Course & Med Decision Making Evaluation of patient in ER showed 32-year-old female patient presented to ER for refill of pain medication. Plan to give 1D prescription of Ponce [place] and instruction to follow with her primary care physician tomorrow. discharge: I've spoken with the patient and/or caregivers. I've explained the patient's condition, diagnosis and treatment plan based on information available to me at this time. I've answered the patient's and/or caregivers questions and addressed any concerns. The patient and/or caregivers have a good understanding the patient's diagnosis, condition and treatment plan as can be expected at this point. Vital signs have been stabilized. The patient's condition is stable for discharge from the emergency department. The patient will pursue further outpatient evaluation with her primary care provider or other designated consulting physician as outlined in the discharge instructions. Patient and/or caregivers are agreeable to this plan of care and follow-up instructions have been explained in detail. The patient and/or caregivers have received these instructions in written format and expressed understanding of these discharge instructions. The patient and her caregivers are aware that if any significant change in condition or worsening of symptoms should prompt him to immediately return to this of the closest emergency department. If an emergent department is not readily available I would encourage him to call 911. [place] Disclaimer Dragon Disclaimer This electronic medical record was generated, in whole or in part, using a voice recognition dictation system. Departure Departure: Impression: Primary Impression: Encounter for medication refill Disposition: HOME, SELF-CARE (At 1209) Condition: STABLE Referrals: JOSÉ MANUEL CONWAY MD (PCP) Patient Instructions: Medication Refill, Emergency Department Additional Instructions: Follow-up with your primary care physician tomorrow Scripts Hydrocodone Bit/Acetaminophen (NORCO 5-325 TABLET) 1 Each Tablet 1 TAB PO PRN Q6HRS Y for PAIN for 1 Day, #6 TAB 0 Refills Prov: JEVON BETHEA MD 06/07/17 JEVON BETHEA MD Jun 07, 2017 12:10
== END 2017-06-07 12:15 | disposition home or self-care (01) ==
LOC: ER 11:27
DX: E11.9 Type 2 diabetes mellitus without complications (principal); J45.909 Unspecified asthma, uncomplicated; F17.210 Nicotine dependence, cigarettes, uncomplicated; F10.20 Alcohol dependence, uncomplicated; Z76.0 Encounter for issue of repeat prescription; Z86.14 Personal history of Methicillin resistant Staphylococcus aureus infection; Z88.6 Allergy status to analgesic agent; Z91.041 Radiographic dye allergy status
CPT/HCPCS: 82947; 99283